=== PATIENT | male | born 1995 | race Caucasian/White ===

== ENCOUNTER 2017-07-13 13:42 | Emergency (ER) | payer MEDICAID, OTHER ==
[~2017-07-13] VITALS: Ht 177.8 cm; Wt 63.0 kg
[2017-07-13 15:15] VITALS: BP 106/70
[2017-07-13] MEDS ORDERED: CALC500T11 PO (15:17)
== END 2017-07-13 16:24 | disposition home or self-care (01) ==
LOC: ER 13:43
DX: S09.90XA Unspecified injury of head, initial encounter (principal); G89.29 Other chronic pain; F12.10 Cannabis abuse, uncomplicated; W19.XXXA Unspecified fall, initial encounter; Y93.01 Activity, walking, marching and hiking; Y92.89 Other specified places as the place of occurrence of the external cause; Y99.8 Other external cause status
CPT/HCPCS: 70450; 99284

== ENCOUNTER 2021-05-28 15:06 | Emergency (ER) | payer MEDICAID, OTHER ==
[~2021-05-28] VITALS: Ht 182.9 cm; Wt 60.0 kg
[~2021-05-28 15:06] MED LIST: CALC500T11 PO
[2021-05-28 15:16] VITALS: BP 123/77
[2021-05-28] MEDS ORDERED: PENI500T2 PO (16:18)
[2021-05-28] MEDS ORDERED: IBUP-1984 PO (16:19)
[2021-05-28] MEDS ORDERED: penicillin V potassium 500mg tablet PO ONE (16:35)
[2021-05-28] MEDS ORDERED: ibuprofen tablet 400 MG TABLET PO ONE (16:35)
== END 2021-05-28 17:57 | disposition home or self-care (01) ==
LOC: ER 15:07
DX: G44.219 Episodic tension-type headache, not intractable (principal); K08.89 Other specified disorders of teeth and supporting structures; G89.29 Other chronic pain; M54.9 Dorsalgia, unspecified; F41.9 Anxiety disorder, unspecified; F31.9 Bipolar disorder, unspecified; F17.210 Nicotine dependence, cigarettes, uncomplicated; F12.10 Cannabis abuse, uncomplicated; Z79.899 Other long term (current) drug therapy
CPT/HCPCS: 99283

== ENCOUNTER 2021-06-06 10:44 | Emergency (ER) | payer MEDICAID ==
[~2021-06-06] VITALS: Ht 182.9 cm; Wt 60.9 kg
[2021-06-06 10:48] VITALS: BP 112/79
[2021-06-06] MEDS ORDERED: HYDR-3972 PO (13:32)
== END 2021-06-06 13:48 | disposition home or self-care (01) ==
LOC: ER 10:45
DX: K04.7 Periapical abscess without sinus (principal); H92.01 Otalgia, right ear; F31.9 Bipolar disorder, unspecified; G89.29 Other chronic pain; M54.9 Dorsalgia, unspecified; F12.10 Cannabis abuse, uncomplicated; Z79.899 Other long term (current) drug therapy
CPT/HCPCS: 99283

== ENCOUNTER 2021-12-08 19:12 | Emergency (ER) | payer MEDICAID ==
[~2021-12-08] VITALS: Ht 182.9 cm; Wt 65.9 kg
[2021-12-08 21:32] VITALS: BP 117/77
[2021-12-08 21:46] LABS: CLARITY,URINE CLEAR (Clear); COLOR,URINE YELLOW (Yellow); GLUCOSE, URINE NEGATIVE (Neg); KETONES,URINE TRACE mg/dl (Neg); LEUKOCYTE ESTERASE ,URINE NEGATIVE (Neg); NITRITES, URINE NEGATIVE (Neg); OCCULT BLOOD,URINE NEGATIVE (Neg); PH,URINE 7.5 (4.8-8.0); PROTEIN,URINE NEGATIVE (Neg); UROBILINOGEN,URINE 0.2 E.U/dL (0.2-1.0)
[2021-12-08 21:53] LABS: UA COLLECTION TYPE CLN CATCH MIDSTREAM
== END 2021-12-08 22:09 | disposition home or self-care (01) ==
LOC: ER 19:12
DX: N48.29 Other inflammatory disorders of penis (principal); G89.29 Other chronic pain; F41.9 Anxiety disorder, unspecified; F31.9 Bipolar disorder, unspecified; F12.90 Cannabis use, unspecified, uncomplicated; Z72.89 Other problems related to lifestyle; Z79.899 Other long term (current) drug therapy
CPT/HCPCS: 81003; 99283; 99284

== ENCOUNTER → 2022-03-21 | Emergency (ER) | payer MEDICAID ==
[~2022-03-21] VITALS: Ht 182.9 cm; Wt 65.0 kg
[2022-03-21 11:05] VITALS: BP 112/68
== END | disposition home or self-care (01) ==
LOC: ER 10:35
DX: S93.602A Unspecified sprain of left foot, initial encounter (principal); S90.32XA Contusion of left foot, initial encounter; G89.29 Other chronic pain; F41.9 Anxiety disorder, unspecified; F31.9 Bipolar disorder, unspecified; F12.90 Cannabis use, unspecified, uncomplicated; Z72.89 Other problems related to lifestyle; Z79.899 Other long term (current) drug therapy; W19.XXXA Unspecified fall, initial encounter; Y93.89 Activity, other specified; Y92.89 Other specified places as the place of occurrence of the external cause; Y99.8 Other external cause status
CPT/HCPCS: 73630; 99284; A6449

== ENCOUNTER 2022-09-07 06:27 | Inpatient (IN) | payer MEDICAID ==
[~2022-09-07] VITALS: Ht 185.4 cm; Wt 65.0 kg
[2022-09-07] MEDS ORDERED: aspirin 81mg tab.chew PO ONE (06:35)
[2022-09-07 07:05] LABS: BASOPHILS # (AUTO) 0.1 X10'3 (0-0.2); BASOPHILS % (AUTO) 0.7 % (0-1); EOSINOPHILS # (AUTO) 0.7 X10'3 (0-0.9); EOSINOPHILS % (AUTO) 5.9 % (0-6); HEMATOCRIT 43.1 % (42.0-52.0); HEMOGLOBIN 14.3 g/dl (14.0-17.9); LYMPHOCYTES # (AUTO) 3.7 X10'3 (1.1-4.8); LYMPHOCYTES % (AUTO) 32.2 % (21-51); MEAN CORPUSCULAR HEMOGLOBIN 30.1 PG (27.0-31.0); MEAN PLATELET VOLUME 10.1 FL (7.4-10.4); MONOCYTES # (AUTO) 0.7 X10'3 (0-0.9); MONOCYTES % (AUTO) 6.1 % (2-12); NEUTROPHILS # (AUTO) 6.3 X10'3 (1.8-7.7); NEUTROPHILS % (AUTO) 55.1 % (42-75); PLATELET COUNT 152 X10'3 (140-440); RED BLOOD COUNT 4.74 X10'6 (4.70-6.10); RED CELL DISTRIBUTION WIDTH 15.2 % (11.5-14.5); WHITE BLOOD COUNT 11.5 X10'3 (4.5-11.0)
[2022-09-07 07:11] LABS: ALANINE AMINOTRANSFERASE 49 U/L (12-78); ALBUMIN/GLOBULIN RATIO 1.3 (1.1-1.5); ALKALINE PHOSPHATASE 56 IU/L (46-116); ANION GAP 9 (8-16); ASPARTATE AMINO TRANSFERASE 34 U/L (10-37); BILIRUBIN,TOTAL 0.3 MG/DL (0.1-1.0); BLOOD UREA NITROGEN 14 MG/DL (7-18); CALCIUM 8.9 MG/DL (8.5-10.1); CHLORIDE 105 MMOL/L (99-107); GLUCOSE 105 MG/DL (70-104); POTASSIUM 3.9 MMOL/L (3.5-5.1); SODIUM 141 MMOL/L (135-145); TOTAL CARBON DIOXIDE 26.6 MMOL/L (24-32); eGFR > 90 ML/MIN
[2022-09-07] MEDS ORDERED: LIDOcaine 1% W/epiNEPHrine 1:100,000 20ml vial SQ ONE (07:20)
[2022-09-07] MEDS ORDERED: morphine 4 MG/ML inj SYRINge IV PRN (07:20)
[2022-09-07] MEDS ORDERED: ondansetron/PF 4mg/2ml inj IV ONE (07:20)
[2022-09-07] MEDS ORDERED: NO HOME MEDS (07:28)
[2022-09-07 07:58] LABS: APTT 29 SECONDS (22-32); D-DIMER 0.22 MG/L FEU (0-0.50)
[2022-09-07] MEDS ORDERED: mag hydrox/Alum hydrox/simeth 30ml oral suspension PO PRN (08:25)
[2022-09-07] MEDS ORDERED: magnesium hydroxide 30ml (MOM) UD suspension PO PRN (08:25)
[2022-09-07] MEDS ORDERED: morphine 2 MG/ML inj. syringe IV PRN ×2 (08:25)
[2022-09-07] MEDS ORDERED: HYDROcodone/acetaminophen 10/325mg tab PO PRN (08:25)
[2022-09-07] MEDS ORDERED: acetaminophen 325mg tablet PO PRN ×2 (08:25)
[2022-09-07] MEDS ORDERED: ondansetron/PF 4mg/2ml inj IV PRN (08:25)
--- NOTE | 2022-09-07 08:58 | NUR ---
provider at the bedside to insert a chest tube, all supplies at the bedside, crash cart in room
--- NOTE | 2022-09-07 09:05 | NUR ---
a total of 10ml of lidocaine were used, pt tolerated procedure well, with with instant relief upon placement of thoravent
--- NOTE | 2022-09-07 09:13 | NUR ---
thoravent placed, cxray ordered
--- NOTE | 2022-09-07 10:39 | NUR ---
Patient in room PCU 3023. I have received report from Roberto JI and had the opportunity to ask questions and assume patient care.Mom is at bedside. CT to low con suction. call light in reach. Addendum: 09/07/22 at 1050 by Tiffany Weber RN Amended: Links added.
[2022-09-07 11:00] VITALS: BP 116/74
[2022-09-07] MEDS: HYDROcodone/acetaminophen 5mg/325mg tablet PO PRN (11:15)
[2022-09-07 15:22] VITALS: BP 120/74
[2022-09-07 18:00] VITALS: BP 117/67
--- NOTE | 2022-09-07 18:10 | NUR ---
Problems reprioritized. Patient report given, questions answered & plan of care reviewed with Fallon JI. Pt relaxing looking at phone. Sukhdeep at bedside. Call light in reach Addendum: 09/07/22 at 1811 by Tiffany Weber RN Amended: Links added.
[2022-09-07] MEDS: docusate sod 100mg capsule PO SCH (19:52)
[2022-09-07 22:00] VITALS: BP 110/70
[2022-09-08] VITALS (11 sets, daily range): BP systolic 98–123; BP diastolic 49–78
[2022-09-08] MEDS: HYDROcodone/acetaminophen 5mg/325mg tablet PO PRN ×3 (02:25→22:32)
--- NOTE | 2022-09-08 06:28 | NUR ---
Patient in room PCU 3023. I have received report from Fallon JI and had the opportunity to ask questions and assume patient care. Pt awake and alert. Thora-vent to low cont. suction. no output in thora-vent. Pt no complaints. Call light in reach. Addendum: 09/08/22 at 0630 by Tiffany Weber RN Amended: Links added.
[2022-09-08 07:07] LABS: BASOPHILS # (AUTO) 0.1 X10'3 (0-0.2); EOSINOPHILS # (AUTO) 0.5 X10'3 (0-0.9); LYMPHOCYTES # (AUTO) 3.3 X10'3 (1.1-4.8); MONOCYTES # (AUTO) 0.5 X10'3 (0-0.9); MONOCYTES % (AUTO) 6.5 % (2-12); NEUTROPHILS # (AUTO) 2.9 X10'3 (1.8-7.7); PLATELET COUNT 145 X10'3 (140-440); WHITE BLOOD COUNT 7.3 X10'3 (4.5-11.0)
[2022-09-08 07:14] LABS: BASOPHILS % (AUTO) 0.8 % (0-1); EOSINOPHILS % (AUTO) 7.4 % (0-6); HEMATOCRIT 41.9 % (42.0-52.0); LYMPHOCYTES % (AUTO) 45.4 % (21-51); MEAN CORPUSCULAR HEMOGLOBIN 30.4 PG (27.0-31.0); MEAN CORPUSCULAR HGB CONC 33.3 g/dL (33.0-36.5); MEAN CORPUSCULAR VOLUME 91.2 FL (78-98); MEAN PLATELET VOLUME 10.2 FL (7.4-10.4); NEUTROPHILS % (AUTO) 39.9 % (42-75); RED BLOOD COUNT 4.59 X10'6 (4.70-6.10); RED CELL DISTRIBUTION WIDTH 15.3 % (11.5-14.5)
[2022-09-08 07:22] LABS: ANION GAP 4 (8-16); BLOOD UREA NITROGEN 11 MG/DL (7-18); BUN/CREATININE RATIO 14.7 (10.0-20.0); CALCIUM 9.2 MG/DL (8.5-10.1); CHLORIDE 103 MMOL/L (99-107); CREATININE 0.75 MG/DL (0.60-1.10); GLUCOSE 89 MG/DL (70-104); POTASSIUM 4.3 MMOL/L (3.5-5.1); SODIUM 139 MMOL/L (135-145); TOTAL CARBON DIOXIDE 31.8 MMOL/L (24-32); eGFR > 90 ML/MIN
[2022-09-08] MEDS: docusate sod 100mg capsule PO SCH ×2 (08:54→19:16)
--- NOTE | 2022-09-08 10:38 | NUR ---
Pt down to angio for pig tail placement.
[2022-09-08] MEDS ORDERED: LIDOcaine 1% (10mg/ml) 2ml vial ONE (10:49)
[2022-09-08] MEDS ORDERED: fentaNYL/PF 50MCG/1 ML 2ML syringe ONE (10:49)
--- NOTE | 2022-09-08 11:44 | NUR ---
PAGER ID: [phone] MESSAGE: [id number] Rossy. Can you consider ordering anti anxiety meds for him. [facility] #[id number]. Pt back from Angio. C/O feeling anxious.
[2022-09-08] MEDS: LORazepam 0.5 MG tablet PO PRN (13:05)
--- NOTE | 2022-09-08 18:14 | NUR ---
Problems reprioritized. Patient report given, questions answered & plan of care reviewed with Fallon JI. Pt resting ,picking at dinner. Refusing pain meds but, states he is in discomfort. Apears depressed at this time. "Does not feel like talking about it". Call light in reach. Addendum: 09/08/22 at 1817 by Tiffany Weber RN Amended: Links added.
[2022-09-09 02:00] VITALS: BP 114/66
[2022-09-09 06:00] VITALS: BP 119/66
[2022-09-09] MEDS: LORazepam 0.5 MG tablet PO PRN (06:17)
[2022-09-09] MEDS: HYDROcodone/acetaminophen 5mg/325mg tablet PO PRN (06:17)
--- NOTE | 2022-09-09 06:20 | NUR ---
Patient in room PCU 3023. I have received report from Belia RAMSAY and had the opportunity to ask questions and assume patient care. Pt awake and alert requesting pain meds for CT insertion site pain. requesting Ativan for anxiety. [place] and Ativan po given. Call light in reach. Addendum: 09/09/22 at 0634 by Tiffany Weber RN Amended: Links added.
[2022-09-09 06:41] LABS: BASOPHILS # (AUTO) 0.1 X10'3 (0-0.2); BASOPHILS % (AUTO) 0.7 % (0-1); EOSINOPHILS # (AUTO) 0.4 X10'3 (0-0.9); EOSINOPHILS % (AUTO) 5.8 % (0-6); HEMATOCRIT 43.4 % (42.0-52.0); HEMOGLOBIN 14.4 g/dl (14.0-17.9); LYMPHOCYTES # (AUTO) 2.9 X10'3 (1.1-4.8); LYMPHOCYTES % (AUTO) 38.9 % (21-51); MEAN CORPUSCULAR HEMOGLOBIN 30.2 PG (27.0-31.0); MEAN CORPUSCULAR HGB CONC 33.2 g/dL (33.0-36.5); MEAN PLATELET VOLUME 10.3 FL (7.4-10.4); MONOCYTES # (AUTO) 0.6 X10'3 (0-0.9); MONOCYTES % (AUTO) 7.4 % (2-12); NEUTROPHILS # (AUTO) 3.5 X10'3 (1.8-7.7); NEUTROPHILS % (AUTO) 47.2 % (42-75); PLATELET COUNT 148 X10'3 (140-440); RED BLOOD COUNT 4.77 X10'6 (4.70-6.10); RED CELL DISTRIBUTION WIDTH 15.1 % (11.5-14.5); WHITE BLOOD COUNT 7.4 X10'3 (4.5-11.0)
[2022-09-09 06:47] LABS: ALBUMIN 4.3 G/DL (3.4-5.0); ANION GAP 7 (8-16); BLOOD UREA NITROGEN 15 MG/DL (7-18); BUN/CREATININE RATIO 19.2 (10.0-20.0); CALCIUM 9.2 MG/DL (8.5-10.1); CHLORIDE 103 MMOL/L (99-107); CREATININE 0.78 MG/DL (0.60-1.10); GLUCOSE 92 MG/DL (70-104); POTASSIUM 3.8 MMOL/L (3.5-5.1); SODIUM 139 MMOL/L (135-145); TOTAL CARBON DIOXIDE 29.2 MMOL/L (24-32); eGFR > 90 ML/MIN
[2022-09-09] MEDS: docusate sod 100mg capsule PO SCH ×2 (07:23→18:59)
[2022-09-09 11:00] VITALS: BP 116/74
[2022-09-09 15:00] VITALS: BP 114/69
[2022-09-09 18:00] VITALS: BP 121/73
--- NOTE | 2022-09-09 18:26 | NUR ---
Problems reprioritized. Patient report given, questions answered & plan of care reviewed with Fallon JI. Pt eating dinner.No distress. CT to low con suction. No air leak.Call light in reach. Addendum: 09/09/22 at 1828 by Tiffany Weber RN Amended: Links added.
[2022-09-09 22:00] VITALS: BP 115/81
[2022-09-10 02:00] VITALS: BP 111/72
[2022-09-10 07:00] VITALS: BP 123/79
[2022-09-10 07:04] LABS: ALBUMIN 4.1 G/DL (3.4-5.0); ANION GAP 7 (8-16); BLOOD UREA NITROGEN 15 MG/DL (7-18); CALCIUM 9.6 MG/DL (8.5-10.1); CHLORIDE 103 MMOL/L (99-107); CREATININE 0.79 MG/DL (0.60-1.10); GLUCOSE 95 MG/DL (70-104); POTASSIUM 4.2 MMOL/L (3.5-5.1); SODIUM 139 MMOL/L (135-145); TOTAL CARBON DIOXIDE 29.4 MMOL/L (24-32); eGFR > 90 ML/MIN
[2022-09-10 07:15] LABS: BASOPHILS # (AUTO) 0.1 X10'3 (0-0.2); BASOPHILS % (AUTO) 0.9 % (0-1); EOSINOPHILS # (AUTO) 0.5 X10'3 (0-0.9); EOSINOPHILS % (AUTO) 6.9 % (0-6); HEMATOCRIT 43.2 % (42.0-52.0); HEMOGLOBIN 14.5 g/dl (14.0-17.9); LYMPHOCYTES # (AUTO) 2.7 X10'3 (1.1-4.8); LYMPHOCYTES % (AUTO) 39.3 % (21-51); MEAN CORPUSCULAR HEMOGLOBIN 30.6 PG (27.0-31.0); MEAN CORPUSCULAR HGB CONC 33.5 g/dL (33.0-36.5); MEAN CORPUSCULAR VOLUME 91.4 FL (78-98); MEAN PLATELET VOLUME 9.9 FL (7.4-10.4); MONOCYTES # (AUTO) 0.6 X10'3 (0-0.9); MONOCYTES % (AUTO) 8.8 % (2-12); NEUTROPHILS % (AUTO) 44.1 % (42-75); PLATELET COUNT 152 X10'3 (140-440); RED BLOOD COUNT 4.72 X10'6 (4.70-6.10); RED CELL DISTRIBUTION WIDTH 14.7 % (11.5-14.5); WHITE BLOOD COUNT 6.9 X10'3 (4.5-11.0)
[2022-09-10] MEDS: docusate sod 100mg capsule PO SCH ×2 (08:00→09:09)
[2022-09-10] MEDS: LORazepam 0.5 MG tablet PO PRN (12:10)
--- NOTE | 2022-09-10 14:25 | NUR ---
PATIENT STABLE AND APPROPRIATE FOR DISCHARGE, IV REMOVED, EDUCATION GIVEN, ALL BELONGINGS SENT WITH PATIENT, PATIENT WALK TO CAR WHERE MOM WILL TAKE PATIENT HOME
== END 2022-09-10 14:25 | disposition home or self-care (01) | DRG 143 ==
LOC: ER 06:28 → ED HOLD 08:25 → PCU 3S 10:22
PROVIDERS: ADMIT Internal Medicine; ATTEND Internal Medicine
PROC: 0W9B30Z Drainage of Left Pleural Cavity with Drainage Device, Percutaneous Approach (ICD-10-PCS; principal; 2022-09-08)
DX: J93.83 Other pneumothorax (principal); F31.9 Bipolar disorder, unspecified; F41.9 Anxiety disorder, unspecified
CPT/HCPCS: 32557; 36415; 71045; 71046; 71250; 77012; 80048; 80053; 83735; 83880; 84484; 85025; 85379; 85610; 85730; 93005; 99285; A4421; A4615; A6234; A6258; A6402; A6449; C1729; C1769; G0378; J2270; J2405; J3010; J3490

== ENCOUNTER 2023-04-12 00:23 | Emergency (ER) | payer MEDICAID ==
[~2023-04-12] VITALS: Ht 188 cm; Wt 71.8 kg
[~2023-04-12 00:23] MED LIST changes: -CALC500T11 PO; +NO HOME MEDS
[2023-04-12 00:56] VITALS: BP 106/82; PULSE 123; RESP 15; TEMP 98.5; O2SAT 97
== END 2023-04-12 02:11 | disposition home or self-care (01) ==
LOC: ER 00:24
DX: N50.812 Left testicular pain (principal); G89.29 Other chronic pain; F12.90 Cannabis use, unspecified, uncomplicated; Z72.89 Other problems related to lifestyle
CPT/HCPCS: 76870; 93976; 99284

== ENCOUNTER 2023-06-09 16:10 | Emergency (ER) | payer MEDICAID ==
[~2023-06-09] VITALS: Ht 188 cm; Wt 73.0 kg
[2023-06-09 17:18] LABS: BILIRUBIN,URINE NEGATIVE (Neg); CLARITY,URINE CLOUDY (Clear); COLOR,URINE RED (Yellow); GLUCOSE, URINE NEGATIVE (Neg); KETONES,URINE TRACE mg/dl (Neg); LEUKOCYTE ESTERASE ,URINE TRACE (Neg); NITRITES, URINE POSITIVE (Neg); OCCULT BLOOD,URINE LARGE (Neg); PROTEIN,URINE 100 mg/dl (Neg); UROBILINOGEN,URINE 0.2 E.U/dL (0.2-1.0)
[2023-06-09 17:29] LABS: UA COLLECTION TYPE URINAL
[2023-06-09 17:30] LABS: RBC,URINE TNTC /HPF (0-2); WBC,URINE TNTC /HPF (0-4)
[2023-06-09 17:31] LABS: BACTERIA,URINE 2+ /HPF (Neg); MUCUS STRANDS FEW /LPF (Neg); SQUAMOUS EPITHELIAL CELL,UR NONE SEEN /LPF (FEW)
[2023-06-09] MEDS ORDERED: CEPH-585 PO (17:37)
[2023-06-09] MEDS ORDERED: PHEN-716 PO (17:37)
[2023-06-09] MEDS: CefTRIAXone 1000mg IM Kit (w/lidocaine diluent) IM ONE (18:14)
[2023-06-09] MEDS: phenazopyridine 100mg tablet PO ONE (18:17)
== END 2023-06-09 18:47 | disposition home or self-care (01) ==
LOC: ER 16:11
DX: N30.90 Cystitis, unspecified without hematuria (principal); F41.9 Anxiety disorder, unspecified; F12.90 Cannabis use, unspecified, uncomplicated; Z72.89 Other problems related to lifestyle; Z79.899 Other long term (current) drug therapy
CPT/HCPCS: 81001; 87077; 87088; 87186; 96372; 99283; J0696